=== PATIENT | female | born 1965 | race Caucasian/White ===

== ENCOUNTER 2017-11-14 20:17 | Emergency (ER) | payer OTHER ==
[2017-11-14] MEDS ORDERED: PROZ40CA PO (20:29)
[2017-11-14] MEDS ORDERED: ABIL20TA5 PO (20:29)
[2017-11-14] MEDS ORDERED: XANA1TAB2 PO (20:29)
[2017-11-14 20:53] VITALS: BP 128/75; PULSE 92; RESP 16; TEMP 97.6; TEMP 98.1; O2SAT 96
[2017-11-14 20:56] LABS: AUTOMATED NEUTROPHIL # 3.5 TH/MM3 (1.8-7.7); BASOPHIL % 0.7 % (0.0-2.0); EOSINOPHIL # 0.1 TH/MM3 (0-0.4); EOSINOPHIL % 2.1 % (0.0-4.0); HEMATOCRIT 38.9 % (35.0-46.0); HEMOGLOBIN 13.5 GM/DL (11.6-15.3); LYMPHOCYTE # 2.7 TH/MM3 (1.0-4.8); MEAN CELL VOLUME 92.3 FL (80.0-100.0); MEAN CORPUSCULAR HGB CONC 34.7 % (32.0-36.0); MEAN PLATELET VOLUME 7.1 FL (7.0-11.0); MONO % 9.4 % (0.0-8.0); MONOCYTE # 0.7 TH/MM3 (0-0.9); NEUT % 49.8 % (16.0-70.0); PLATELET COUNT 309 TH/MM3 (150-450); RED BLOOD COUNT 4.22 MIL/MM3 (4.00-5.30); RED CELL DISTRIBUTION WIDTH 12.8 % (11.6-17.2); WHITE BLOOD COUNT 7.1 TH/MM3 (4.0-11.0)
[2017-11-14 21:07] LABS: ALBUMIN 3.6 GM/DL (3.4-5.0); BICARBONATE 37.3 MEQ/L (21.0-32.0); BLOOD UREA NITROGEN 7 MG/DL (7-18); CALCIUM 8.6 MG/DL (8.5-10.1); CHLORIDE 100 MEQ/L (98-107); CREATININE 0.75 MG/DL (0.50-1.00); GLOMERULAR FILTRATION RATE 81 ML/MIN (>89); GLUCOSE,RANDOM 82 MG/DL (74-106); SODIUM (NA) 141 MEQ/L (136-145)
[2017-11-14 21:08] LABS: AST (GOT) 20 U/L (15-37)
--- NOTE | 2017-11-14 21:13 | PD ---
HPI Chief Complaint: Psychiatric Symptoms Time Seen by Provider: 20:29 Travel History International Travel<30 days: No Contact w/Intl Traveler<30days: No Traveled to known affect area: No History of Present Illness HPI Patient is a 52-year-old female presenting to the emergency department under Harris act for psychiatric evaluation. Patient made statements to her that she was just going to end her life to be with her daughter. Allegedly they had been arguing this evening. Patient's daughter was killed 5 years ago. Patient has a history of depression and anxiety, she has no previous suicide attempt, she denies any suicidal homicidal ideations. Patient's depression anxiety started after her daughter was killed. Symptom onset was gradual, symptoms are exacerbated by argument with . Severity is moderate. She has no other complaints at this time. And states she just wants to sleep. PFSH Past Medical History Anxiety: Yes Depression: Yes Immunizations Current: No ?: Not Menopausal: Yes Past Surgical History Section: Yes (C SECTIONS X2) Social History Alcohol Use: Yes (OCC) Tobacco Use: Yes (1/2 PK DAILY) Substance Use: No Allergies-Medications (Allergen,Severity, Reaction): Coded Allergies: No Known Allergies (Verified Allergy, Unknown, 11/14/17) Reported Meds & Prescriptions Reported Meds & Active Scripts Active Reported Xanax (Alprazolam) 1 Mg Tab 1 Mg PO TID PRN Abilify (Aripiprazole) 20 Mg Tab 20 Mg PO DAILY Prozac (Fluoxetine HCl) 40 Mg Cap 40 Mg PO DAILY Review of Systems Except as stated in HPI: all other systems reviewed are Neg Psychiatric: Positive: Anxiety, Depression, Suicidal Ideations Physical Exam Narrative GENERAL: Well-developed, well-nourished, alert female. Presenting in no acute distress. SKIN: Warm and dry. HEAD: Atraumatic. Normocephalic. EYES: Pupils equal and round. No scleral icterus. No injection or drainage. ENT: No nasal bleeding or discharge. Mucous membranes pink and moist. NECK: Trachea midline. No JVD. CARDIOVASCULAR: Regular rate and rhythm. RESPIRATORY: No accessory muscle use. Clear to auscultation. Breath sounds equal bilaterally. GASTROINTESTINAL: Abdomen soft, non-tender, nondistended. Hepatic and splenic margins not palpable. MUSCULOSKELETAL: Extremities without clubbing, cyanosis, or edema. No obvious deformities. NEUROLOGICAL: Awake and alert. No obvious cranial nerve deficits. Motor grossly within normal limits. Five out of 5 muscle strength in the arms and legs. Normal speech. PSYCHIATRIC: Depressed mood and affect; insight and judgment normal. Data Data Last Documented VS Vital Signs Date Time Temp Pulse Resp B/P (MAP) Pulse Ox O2 Delivery O2 Flow Rate FiO2 11/14/17 20:53 98.1 92 16 128/75 (92) 96 Room Air Orders Orders Complete Blood Count With Diff (11/14/17 20:29) Comprehensive Metabolic Panel (11/14/17 20:29) Thyroid Stimulating Hormone (11/14/17 20:29) Urinalysis - C+S If Indicated (11/14/17 20:29) Psych Screen (11/14/17 20:29) Drug Screen, Random Urine (11/14/17 20:29) Alcohol (Ethanol) (11/14/17 20:29) Salicylates (Aspirin) (11/14/17 20:29) Tylenol (Acetaminophen) (11/14/17 20:29) Free Thyroxine (T4) (11/14/17 22:21) Urine Culture (11/14/17 22:50) Cephalexin (Keflex) (11/14/17 23:15) Labs Laboratory Tests Test 11/14/17 20:40 11/14/17 22:50 White Blood Count 7.1 TH/MM3 Red Blood Count 4.22 MIL/MM3 Hemoglobin 13.5 GM/DL Hematocrit 38.9 % Mean Corpuscular Volume 92.3 FL Mean Corpuscular Hemoglobin 32.0 PG Mean Corpuscular Hemoglobin Concent 34.7 % Red Cell Distribution Width 12.8 % Platelet Count 309 TH/MM3 Mean Platelet Volume 7.1 FL Neutrophils (%) (Auto) 49.8 % Lymphocytes (%) (Auto) 38.0 % Monocytes (%) (Auto) 9.4 % Eosinophils (%) (Auto) 2.1 % Basophils (%) (Auto) 0.7 % Neutrophils # (Auto) 3.5 TH/MM3 Lymphocytes # (Auto) 2.7 TH/MM3 Monocytes # (Auto) 0.7 TH/MM3 Eosinophils # (Auto) 0.1 TH/MM3 Basophils # (Auto) 0.0 TH/MM3 CBC Comment DIFF FINAL Differential Comment Blood Urea Nitrogen 7 MG/DL Creatinine 0.75 MG/DL Random Glucose 82 MG/DL Total Protein 7.1 GM/DL Albumin 3.6 GM/DL Calcium Level 8.6 MG/DL Alkaline Phosphatase 146 U/L Aspartate Amino Transf (AST/SGOT) 20 U/L Alanine Aminotransferase (ALT/SGPT) 15 U/L Total Bilirubin 0.3 MG/DL Sodium Level 141 MEQ/L Potassium Level 3.0 MEQ/L Chloride Level 100 MEQ/L Carbon Dioxide Level 37.3 MEQ/L Anion Gap 4 MEQ/L Estimat Glomerular Filtration Rate 81 ML/MIN Free Thyroxine 0.94 NG/DL Thyroid Stimulating Hormone 3rd Gen 8.760 uIU/ML Salicylates Level 5.0 MG/DL Acetaminophen Level LESS THAN 2.0 MCG/ML Ethyl Alcohol Level 6 MG/DL Urine Color LIGHT-YELLOW Urine Turbidity HAZY Urine pH 7.0 Urine Specific [place] 1.004 Urine Protein NEG mg/dL Urine Glucose (UA) NEG mg/dL Urine Ketones NEG mg/dL Urine Occult Blood TRACE Urine Nitrite POS Urine Bilirubin NEG Urine Urobilinogen LESS THAN 2.0 MG/DL Urine Leukocyte Esterase LARGE Urine RBC 4 /hpf Urine WBC 28 /hpf Urine Squamous Epithelial Cells 6 /hpf Urine Bacteria MANY /hpf Microscopic Urinalysis Comment CULTURE INDICATED MDM Medical Decision Making Medical Screen Exam Complete: Yes Emergency Medical Condition: Yes Interpretation(s) Laboratory Tests Test 11/14/17 20:40 11/14/17 22:50 White Blood Count 7.1 TH/MM3 Red Blood Count 4.22 MIL/MM3 Hemoglobin 13.5 GM/DL Hematocrit 38.9 % Mean Corpuscular Volume 92.3 FL Mean Corpuscular Hemoglobin 32.0 PG Mean Corpuscular Hemoglobin Concent 34.7 % Red Cell Distribution Width 12.8 % Platelet Count 309 TH/MM3 Mean Platelet Volume 7.1 FL Neutrophils (%) (Auto) 49.8 % Lymphocytes (%) (Auto) 38.0 % Monocytes (%) (Auto) 9.4 % Eosinophils (%) (Auto) 2.1 % Basophils (%) (Auto) 0.7 % Neutrophils # (Auto) 3.5 TH/MM3 Lymphocytes # (Auto) 2.7 TH/MM3 Monocytes # (Auto) 0.7 TH/MM3 Eosinophils # (Auto) 0.1 TH/MM3 Basophils # (Auto) 0.0 TH/MM3 CBC Comment DIFF FINAL Differential Comment Blood Urea Nitrogen 7 MG/DL Creatinine 0.75 MG/DL Random Glucose 82 MG/DL Total Protein 7.1 GM/DL Albumin 3.6 GM/DL Calcium Level 8.6 MG/DL Alkaline Phosphatase 146 U/L Aspartate Amino Transf (AST/SGOT) 20 U/L Alanine Aminotransferase (ALT/SGPT) 15 U/L Total Bilirubin 0.3 MG/DL Sodium Level 141 MEQ/L Potassium Level 3.0 MEQ/L Chloride Level 100 MEQ/L Carbon Dioxide Level 37.3 MEQ/L Anion Gap 4 MEQ/L Estimat Glomerular Filtration Rate 81 ML/MIN Free Thyroxine 0.94 NG/DL Thyroid Stimulating Hormone 3rd Gen 8.760 uIU/ML Salicylates Level 5.0 MG/DL Acetaminophen Level LESS THAN 2.0 MCG/ML Ethyl Alcohol Level 6 MG/DL Urine Color LIGHT-YELLOW Urine Turbidity HAZY Urine pH 7.0 Urine Specific [place] 1.004 Urine Protein NEG mg/dL Urine Glucose (UA) NEG mg/dL Urine Ketones NEG mg/dL Urine Occult Blood TRACE Urine Nitrite POS Urine Bilirubin NEG Urine Urobilinogen LESS THAN 2.0 MG/DL Urine Leukocyte Esterase LARGE Urine RBC 4 /hpf Urine WBC 28 /hpf Urine Squamous Epithelial Cells 6 /hpf Urine Bacteria MANY /hpf Microscopic Urinalysis Comment CULTURE INDICATED Vital Signs Date Time Temp Pulse Resp B/P (MAP) Pulse Ox O2 Delivery O2 Flow Rate FiO2 11/14/17 20:53 97.6 92 16 128/75 (92) 96 Room Air Differential Diagnosis Mood disorder versus substance abuse versus intoxication versus suicidal ideations versus other Narrative Course Patient is a 52-year-old female presented to the emergency department under a Harris act for psychiatric evaluation. Patient is well-appearing, she denies any suicidal or homicidal ideations. Patient's vital signs are stable. Mental health screening discussed with the patient. Psychiatric screen ordered. CBC reviewed, no acute findings identified. Chemistry with potassium of 3.0, TSH 8.76, free T4 0.94 Urine drug screen is positive for amphetamines, benzodiazepines, cocaine, marijuana. Alcohol level is 6. Salicylate and acetaminophen levels are unremarkable. Urinalysis is consistent with a urinary tract infection, patient will be given first dose of Keflex now. She will be provided with a prescription to complete full course of therapy. Patient is medically cleared for psychiatric evaluation at this time. Additionally potassium was replaced with oral supplementation. Diagnosis Primary Impression: Medical clearance for psychiatric admission Additional Impressions: Polysubstance abuse Hypokalemia Urinary tract infection Qualified Codes: N39.0 - Urinary tract infection, site not specified; R31.9 - Hematuria, unspecified Med/Other Pt SpecificInfo: Prescription(s) given Scripts Cephalexin (Keflex) 500 Mg Cap 500 MG PO Q12H for Infection for 5 Days, #10 CAP 0 Refills Prov: Susanna Kiran 11/14/17 Condition: Stable Susanna Kiran Nov 14, 2017 21:13
[2017-11-14 21:19] LABS: ALKALINE PHOSPHATASE 146 U/L (45-117); ALT (GPT) 15 U/L (10-53); TOTAL BILIRUBIN ADULT 0.3 MG/DL (0.2-1.0); TOTAL PROTEIN 7.1 GM/DL (6.4-8.2)
[2017-11-14 21:24] LABS: ACETAMINOPHEN LESS THAN 2.0 MCG/ML (10.0-30.0)
[2017-11-14 23:10] LABS: BACTERIA, URINE MANY /hpf; BILIRUBIN, URINE NEG (NEG); BLOOD, URINE TRACE (NEG); GLUCOSE,URINE NEG (NEG); KETONE, URINE NEG (NEG); NITRITE,URINE POS (NEG); SQUAMOUS EPITHELIAL CELL URINE 6 /hpf (0-5); URINE COLOR LIGHT-YELLOW (YELLW/STRAW); URINE LEUKOCYTE ESTERASE LARGE (NEG)
[2017-11-14] MEDS ORDERED: CEPHALEXIN MONOHYDRATE 500 MG CAP PO ONE (23:15)
[2017-11-14] MEDS ORDERED: POTASSIUM CHLORIDE 10 MEQ CONTROLLED RELEASE TAB PO ONE (23:15)
[2017-11-14] MEDS ORDERED: CEPH-460 PO (23:18)
[2017-11-15 07:45] VITALS: BP 124/74; PULSE 88; RESP 16; O2SAT 95
[2017-11-15 13:14] VITALS: BP 172/96; PULSE 93; RESP 18; TEMP 98.8; O2SAT 97
[2017-11-15 18:01] VITALS: BP 134/67; PULSE 84; RESP 18; O2SAT 96
--- NOTE | 2017-11-15 19:03 | PD ---
History of Present Illness Chief Complaint: Psychiatric Symptoms Time Seen by Provider: 18:30 Travel History International Travel<30 Days: No Contact w/Intl Traveler<30days: No Known affected area: No Legal Status Legal Status: Harris Act Harris Act Signed By: Shay Gipson History of Present Illness: History of Present Illness HPI Patient is a 52-year-old female with history of anxiety and depression, substance use disorder, who presented to the emergency department under Harris act initiated by law enforcement for psychiatric evaluation. The Harris act report states "female making suicidal statements and advising she wants her in her life to be with her daughter." Patient reports that she was placed under Harris act while in context of an argument with her over some insurance issues. She states I was angry and sad I told my I wanted to be with my daughter". Patient was also under the influence of several substances including benzos, amphetamines, cocaine, and cannabinoids. Electronic medical record is reviewed. No previous contact with [facility] psychiatry. She was monitored in secure them are meant over extended period of time she presented no behavioral concerns and no suicidality. The patient is seen. She is clinically sober at this time. She is calm, cooperative and engaging. She is dressed in hospital gown and maintaining basic hygiene and grooming. Her affect is variable and appropriate. Her speech is clear and logical and normal for rate and tone. There is no evidence of any thought process or thought content disorder. No estefany or hypomania. Her mood is sad. She states that her daughter was killed 5 years ago on October. Patient denies that she has any suicidal or homicidal ideation, intent or plan. She states" I have a 37-year-old son and he is my heart I wouldn't hurt myself." Patient is currently in treatment with Prozac, Abilify, Ambien and Xanax. She has not had psychiatric follow-up since she moved to the area 4 months ago. PFSH Past Medical History Anxiety: Yes Depression: Yes Immunizations Current: No ?: Not Menopausal: Yes Past Surgical History Section: Yes (C SECTIONS X2) Psychiatric History Psychiatric History Hx Psychiatric Treatment: Was diagnosed with depression 5 years ago after the of her daughter. History of Inpatient Treatment: No Guns or firearms in home: No Social History Patient has been for 4 months and currently lives with her . This is her third marriage. Her daughter was killed 5 years ago. She has a 37- year-old son. She is currently unemployed. Hx Alcohol Use: Yes (OCC) Hx Tobacco Use: Yes (1/2 PK DAILY) Hx Substance Use: Yes (patient denied having any history of substance abuse) Substance Use Type: Marijuana, Amphetamines-Stimulants, Benzos (Valium,Xanax), Cocaine Hx of Substance Use Treatment: No Family Psychiatric History Denies any Allergies-Medications (Allergen,Severity, Reaction): Coded Allergies: No Known Allergies (Verified Allergy, Unknown, 11/14/17) Reported Meds & Prescriptions Reported Meds & Active Scripts Active Keflex (Cephalexin) 500 Mg Cap 500 Mg PO Q12H 5 Days Reported Xanax (Alprazolam) 1 Mg Tab 1 Mg PO TID PRN Abilify (Aripiprazole) 20 Mg Tab 20 Mg PO DAILY Prozac (Fluoxetine HCl) 40 Mg Cap 40 Mg PO DAILY Review of Systems Psychiatric: COMPLAINS OF: Anxiety, Depression Except as stated in HPI: all other systems reviewed are Neg Mental Status Examination Appearance: Appropriate Consciousness: Alert Orientation: x4 Motor Activity: Normal gait Speech: Unremarkable Language: Adequate Fund of Knowledge: Adequate Attention and Concentration: Adequate Memory: Unremarkable Mood: Appropriate Affect: Appropriate Thought Process & Associations: Intact, Logical, Goal directed Thought Content: Appropriate Hallucination Type: None Delusion Type: None Suicidal Ideation: No Suicidal Plan: No Suicidal Intention: No Homicidal Ideation: No Homicidal Plan: No Homicidal Intention: No Insight: Adequate Judgment: Impulsive MDM Medical Decision Making Medical Record Reviewed: Yes Assessment/Plan HPI Patient is a 52-year-old female with history of anxiety and depression, substance use disorder, who presented to the emergency department under Harris act initiated by law enforcement for psychiatric evaluation. The Harris act report states "female making suicidal statements and advising she wants her in her life to be with her daughter." Patient reports that she was placed under Harris act while in context of an argument with her over some insurance issues. She states I was angry and sad I told my I wanted to be with my daughter". Patient was also under the influence of several substances including benzos, amphetamines, cocaine, and cannabinoids. The patient denies any suicidal ideation, intent or plan. Has adequate protective factors. He is future oriented. No previous history of suicide attempts. No significant depression or anxiety. The patient presents no criteria to remain under the Harris act at this time. She is provided psychoeducation. BA is lifted. Orders Orders Complete Blood Count With Diff (11/14/17 20:29) Comprehensive Metabolic Panel (11/14/17 20:29) Thyroid Stimulating Hormone (11/14/17 20:29) Urinalysis - C+S If Indicated (11/14/17 20:29) Psych Screen (11/14/17 20:29) Drug Screen, Random Urine (11/14/17 20:29) Alcohol (Ethanol) (11/14/17 20:29) Salicylates (Aspirin) (11/14/17 20:29) Tylenol (Acetaminophen) (11/14/17 20:29) Free Thyroxine (T4) (11/14/17 22:21) Urine Culture (11/14/17 22:50) Cephalexin (Keflex) (11/14/17 23:15) Potassium Chloride (Kcl) (11/14/17 23:15) Diet Regular Basic (11/15/17 Breakfast) Diet Regular Basic (11/15/17 Dinner) Results Vital Signs Date Time Temp Pulse Resp B/P (MAP) Pulse Ox O2 Delivery O2 Flow Rate FiO2 11/15/17 18:01 84 18 134/67 (89) 96 Room Air 11/15/17 13:14 98.8 93 18 172/96 (121) 97 Room Air 11/15/17 11:00 17 11/15/17 07:45 88 16 124/74 (91) 95 Room Air 11/14/17 20:53 98.1 92 16 128/75 (92) 96 Room Air Laboratory Tests Test 11/14/17 20:40 11/14/17 22:50 White Blood Count 7.1 Red Blood Count 4.22 Hemoglobin 13.5 Hematocrit 38.9 Mean Corpuscular Volume 92.3 Mean Corpuscular Hemoglobin 32.0 Mean Corpuscular Hemoglobin Concent 34.7 Red Cell Distribution Width 12.8 Platelet Count 309 Mean Platelet Volume 7.1 Neutrophils (%) (Auto) 49.8 Lymphocytes (%) (Auto) 38.0 Monocytes (%) (Auto) 9.4 Eosinophils (%) (Auto) 2.1 Basophils (%) (Auto) 0.7 Neutrophils # (Auto) 3.5 Lymphocytes # (Auto) 2.7 Monocytes # (Auto) 0.7 Eosinophils # (Auto) 0.1 Basophils # (Auto) 0.0 CBC Comment DIFF FINAL Differential Comment Blood Urea Nitrogen 7 Creatinine 0.75 Random Glucose 82 Total Protein 7.1 Albumin 3.6 Calcium Level 8.6 Alkaline Phosphatase 146 Aspartate Amino Transf (AST/SGOT) 20 Alanine Aminotransferase (ALT/SGPT) 15 Total Bilirubin 0.3 Sodium Level 141 Potassium Level 3.0 Chloride Level 100 Carbon Dioxide Level 37.3 Anion Gap 4 Estimat Glomerular Filtration Rate 81 Free Thyroxine 0.94 Thyroid Stimulating Hormone 3rd Gen 8.760 Salicylates Level 5.0 Acetaminophen Level LESS THAN 2.0 Ethyl Alcohol Level 6 Urine Color LIGHT-YELLOW Urine Turbidity HAZY Urine pH 7.0 Urine Specific [place] 1.004 Urine Protein NEG Urine Glucose (UA) NEG Urine Ketones NEG Urine Occult Blood TRACE Urine Nitrite POS Urine Bilirubin NEG Urine Urobilinogen LESS THAN 2.0 Urine Leukocyte Esterase LARGE Urine RBC 4 Urine WBC 28 Urine Squamous Epithelial Cells 6 Urine Bacteria MANY Microscopic Urinalysis Comment CULTURE INDICATED Urine Opiates Screen NEG Urine Barbiturates Screen NEG Urine Amphetamines Screen POS Urine Benzodiazepines Screen POS Urine Cocaine Screen POS Urine Cannabinoids Screen POS Date/Time Source Procedure Growth Status 11/14/17 22:50 Urine Clean Catch Urine Culture - Preliminary Gram Negative Mark Resulted Diagnosis Primary Impression: Polysubstance abuse Additional Impressions: Adjustment disorder Amphetamine abuse Psychiatrically Cleared: Yes Med/ Other Pt Specific Info: No Change to Meds Prescriptions Cephalexin (Keflex) 500 Mg Cap 500 MG PO Q12H for Infection for 5 Days, #10 CAP 0 Refills Prov: MagnoSusannaP 11/14/17 Disposition: 01 DISCHARGE HOME Condition: Stable Problem Qualifiers Additional Impressions: Adjustment disorder Qualified Codes: F43.21 - Adjustment disorder with depressed mood Monica Mckeon Nov 15, 2017 19:03
--- NOTE | 2017-11-15 19:48 | PD ---
Physical Exam Date Seen by Provider: Nov 15, 2017 Time Seen by Provider: 19:46 Narrative For full history and physical examination please see previous notes. Data Data Last Documented VS Vital Signs Date Time Temp Pulse Resp B/P (MAP) Pulse Ox O2 Delivery O2 Flow Rate FiO2 11/15/17 18:01 84 18 134/67 (89) 96 Room Air 11/15/17 13:14 98.8 Orders Orders Complete Blood Count With Diff (11/14/17 20:29) Comprehensive Metabolic Panel (11/14/17 20:29) Thyroid Stimulating Hormone (11/14/17 20:29) Urinalysis - C+S If Indicated (11/14/17 20:29) Psych Screen (11/14/17 20:29) Drug Screen, Random Urine (11/14/17 20:29) Alcohol (Ethanol) (11/14/17 20:29) Salicylates (Aspirin) (11/14/17 20:29) Tylenol (Acetaminophen) (11/14/17 20:29) Free Thyroxine (T4) (11/14/17 22:21) Urine Culture (11/14/17 22:50) Cephalexin (Keflex) (11/14/17 23:15) Potassium Chloride (Kcl) (11/14/17 23:15) Diet Regular Basic (11/15/17 Breakfast) Diet Regular Basic (11/15/17 Dinner) Labs Laboratory Tests Test 11/14/17 20:40 11/14/17 22:50 White Blood Count 7.1 TH/MM3 Red Blood Count 4.22 MIL/MM3 Hemoglobin 13.5 GM/DL Hematocrit 38.9 % Mean Corpuscular Volume 92.3 FL Mean Corpuscular Hemoglobin 32.0 PG Mean Corpuscular Hemoglobin Concent 34.7 % Red Cell Distribution Width 12.8 % Platelet Count 309 TH/MM3 Mean Platelet Volume 7.1 FL Neutrophils (%) (Auto) 49.8 % Lymphocytes (%) (Auto) 38.0 % Monocytes (%) (Auto) 9.4 % Eosinophils (%) (Auto) 2.1 % Basophils (%) (Auto) 0.7 % Neutrophils # (Auto) 3.5 TH/MM3 Lymphocytes # (Auto) 2.7 TH/MM3 Monocytes # (Auto) 0.7 TH/MM3 Eosinophils # (Auto) 0.1 TH/MM3 Basophils # (Auto) 0.0 TH/MM3 CBC Comment DIFF FINAL Differential Comment Blood Urea Nitrogen 7 MG/DL Creatinine 0.75 MG/DL Random Glucose 82 MG/DL Total Protein 7.1 GM/DL Albumin 3.6 GM/DL Calcium Level 8.6 MG/DL Alkaline Phosphatase 146 U/L Aspartate Amino Transf (AST/SGOT) 20 U/L Alanine Aminotransferase (ALT/SGPT) 15 U/L Total Bilirubin 0.3 MG/DL Sodium Level 141 MEQ/L Potassium Level 3.0 MEQ/L Chloride Level 100 MEQ/L Carbon Dioxide Level 37.3 MEQ/L Anion Gap 4 MEQ/L Estimat Glomerular Filtration Rate 81 ML/MIN Free Thyroxine 0.94 NG/DL Thyroid Stimulating Hormone 3rd Gen 8.760 uIU/ML Salicylates Level 5.0 MG/DL Acetaminophen Level LESS THAN 2.0 MCG/ML Ethyl Alcohol Level 6 MG/DL Urine Color LIGHT-YELLOW Urine Turbidity HAZY Urine pH 7.0 Urine Specific [place] 1.004 Urine Protein NEG mg/dL Urine Glucose (UA) NEG mg/dL Urine Ketones NEG mg/dL Urine Occult Blood TRACE Urine Nitrite POS Urine Bilirubin NEG Urine Urobilinogen LESS THAN 2.0 MG/DL Urine Leukocyte Esterase LARGE Urine RBC 4 /hpf Urine WBC 28 /hpf Urine Squamous Epithelial Cells 6 /hpf Urine Bacteria MANY /hpf Microscopic Urinalysis Comment CULTURE INDICATED Urine Opiates Screen NEG Urine Barbiturates Screen NEG Urine Amphetamines Screen POS Urine Benzodiazepines Screen POS Urine Cocaine Screen POS Urine Cannabinoids Screen POS MDM Medical Record Reviewed: Yes Supervised Visit with CHRIS: No Narrative Course Patient presented to the emergency department under Harris act for psychiatric evaluation secondary to making suicidal statements to her while in an argument. Patient was seen, evaluated and medically cleared. She was then seen and evaluated by the psychiatrist. Harris act was lifted and patient was deemed safe to be discharged. Diagnosis Primary Impression: Medical clearance for psychiatric admission Additional Impressions: Urinary tract infection Qualified Codes: N39.0 - Urinary tract infection, site not specified; R31.9 - Hematuria, unspecified Polysubstance abuse Hypokalemia Referrals: Primary Care Physician [facility] Patient Instructions: General Instructions, Polysubstance Abuse (ED), Urinary Tract Infection in Women (DC) Additional Instruction: Follow-up with your primary doctor Follow-up with Jerry Marchman Avoid illicit drug use Full course of antibiotics as prescribed Return to emergency department for any new worsening symptoms Med/Other Pt SpecificInfo: Prescription(s) given Scripts Cephalexin (Keflex) 500 Mg Cap 500 MG PO Q12H for Infection for 5 Days, #10 CAP 0 Refills Prov: Susanna Kiran 11/14/17 Disposition: 01 DISCHARGE HOME Condition: Stable Susanna Kiran Nov 15, 2017 19:48
== END 2017-11-15 20:16 | disposition home or self-care (01) ==
LOC: NEPD 20:17 → NEPJ 11-15 20:16
DX: F19.10 Other psychoactive substance abuse, uncomplicated (principal); F43.21 Adjustment disorder with depressed mood; F15.10 Other stimulant abuse, uncomplicated; E87.6 Hypokalemia; N39.0 Urinary tract infection, site not specified; B96.20 Unspecified Escherichia coli [E. coli] as the cause of diseases classified elsewhere; R31.9 Hematuria, unspecified; F41.9 Anxiety disorder, unspecified; F17.200 Nicotine dependence, unspecified, uncomplicated
CPT/HCPCS: 80053; 80307; 81001; 84439; 84443; 85025; 87077; 87086; 87186; 99284